=== PATIENT | female | born 1965 | race Caucasian/White ===

== ENCOUNTER → 2018-05-31 | Outpatient (CLI) | payer OTHER | LOC: FIMAGING 13:37 | PROVIDERS: ATTEND Orthopaedic Surgery | DX: Z01.818 Encounter for other preprocedural examination (principal); M17.11 Unilateral primary osteoarthritis, right knee; M23.41 Loose body in knee, right knee ==

== ENCOUNTER 2018-06-19 06:00 | Observation (INO) | payer OTHER ==
[~2018-06-19 06:00] MED LIST: ROPIVACAINE 0.2% 80 MG, EPINEPHrine 0.2 MG, KETOROLAC TROMETHAMINE 30 MG in SYRINGE 0 ML IU ONE; TRANEXAMIC ACID 3,000 MG in NS (SYRINGE) 50 ML IRR ONE
[2018-06-19] MEDS ORDERED: FAMOTIDINE 20 MG TAB PO ONE (06:19)
[2018-06-19] MEDS ORDERED: DEXAMETHASONE 4 MG/ML VIAL IVP ONE (06:19)
[2018-06-19] MEDS ORDERED: ACETAMINOPHEN 325 MG TAB PO ONE (06:19)
[2018-06-19] MEDS ORDERED: ceFAZolin 2 GM/DEXTROSE 100 ML IV ONE (06:19)
[2018-06-19] MEDS ORDERED: LR 1,000 ML IV ONE (06:21)
[2018-06-19] MEDS ORDERED: LIDOCAINE 1% 2 ML INJ ID PRN (06:21)
[2018-06-19] MEDS ORDERED: TRANEXAMIC ACID 3,000 MG/50 ML BAG IRR ONE (06:49)
[2018-06-19] MEDS ORDERED: MIDAZOLAM 2 MG/2 ML VIAL IVP ONE (06:55)
[2018-06-19] MEDS ORDERED: MIDAZOLAM 2 MG/2 ML VIAL ONE (06:55)
[2018-06-19] MEDS ORDERED: HYDROCODONE/APAP 5/325 TAB PO PRN (06:56)
[2018-06-19] MEDS ORDERED: PROMETHAZINE HCL 25 MG/ML INJ IVP PRN ×2 (06:56→08:54)
[2018-06-19] MEDS ORDERED: ONDANSETRON 4 MG/2 ML VIAL IVP PRN ×2 (06:56→08:54)
[2018-06-19] MEDS ORDERED: ALBUTEROL 3 ML DEYVIAL IH PRN (06:56)
[2018-06-19] MEDS ORDERED: oxyCODONE IR 5 MG TAB PO PRN (06:56)
[2018-06-19] MEDS ORDERED: DEXAMETHASONE 4 MG/ML VIAL IVP PRN (06:56)
[2018-06-19] MEDS ORDERED: NALOXONE HCL 0.4 MG/ML INJ IVP PRN (06:56)
[2018-06-19] MEDS ORDERED: ACETAMINOPHEN 500 MG TAB PO PRN (06:56)
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
[2018-06-19] MEDS ORDERED: PROPOFOL/EMULSION 500 MG/50 ML BOTTLE IV ONE (07:10)
--- NOTE | 2018-06-19 07:14 | PDHPUP ---
History & Physical Update H&P update statement: This history and physical update is based on an assessment of the patient which was completed after admission or registration (within 24 hours), but prior to the surgery/procedure. H&P update: H&P reviewed & patient examined, no change in patient's condition since H&P completed
[2018-06-19] MEDS ORDERED: fentaNYL 100 MCG/2 ML INJ ONE ×2 (07:15→10:33)
[2018-06-19] MEDS ORDERED: ROPIVACAINE HCL 150 MG/30 ML INJ ONE (07:45)
[2018-06-19] MEDS ORDERED: ONDANSETRON 4 MG/2 ML VIAL ONE (07:45)
[2018-06-19] MEDS ORDERED: PROPOFOL 200 MG/20 ML VIAL ONE (08:26)
[2018-06-19] MEDS ORDERED: MAGNESIUM HYDROXIDE 30 ML UDCUP PO PRN (08:54)
[2018-06-19] MEDS ORDERED: TEMAZEPAM 15 MG CAP PO PRN (08:54)
[2018-06-19] MEDS ORDERED: PROMETHAZINE HCL 25 MG SUPPR PR PRN (08:54)
[2018-06-19] MEDS ORDERED: LACTULOSE 20 GM/30 ML UDCUP PO PRN (08:54)
[2018-06-19] MEDS ORDERED: BISACODYL 10 MG SUPP PR PRN (08:54)
[2018-06-19] MEDS ORDERED: POLYETHYLENE GLYCOL 3350 17 GM PKT PO PRN (08:54)
[2018-06-19] MEDS ORDERED: METOCLOPRAMIDE 10 MG/2 ML VIAL IVP PRN (08:54)
[2018-06-19] MEDS ORDERED: DIPHENOXYLATE/ATROPINE LOMOTIL 1 TAB PO PRN (08:54)
[2018-06-19] MEDS ORDERED: diphenhydrAMINE 25 MG CAP PO PRN (08:54)
--- NOTE | 2018-06-19 08:54 | POSTOPPROG ---
Post Op Note Date of Operation: 06/19/18 Surgeon: Lance Covington [employer] Helper: andreia covington Anesthesiologist: dr. cabrales Anesthesia: Spinal, Other (Specify) (adductor canal block) Pre-op Diagnosis: right knee OA Post-op Diagnosis: same Indication: right knee pain Procedure: R TKA robot assisted Findings: severe knee OA Inf/Abcess present in the surg proc area at time of surgery?: No EBL: 50-100
[2018-06-19] MEDS ORDERED: ACYCLOVIR 400 MG TAB PO PRN (08:56)
[2018-06-19] MEDS ORDERED: LR 1,000 ML IV SCH (09:00)
--- NOTE | 2018-06-19 10:01 | POSTANESTH ---
Post Anesthetic Evaluation Cardiovascular Status: Normal, Stable Respiratory Status: Normal, Stable Level of Consciousness/Mental Status: Can Participate in Eval Pain Control: Adequate, Prn Tx Ordered Nausea/Vomiting Control: Adequate, Prn Tx Ordered Complications Possibly Related to Anesthesia: None Noted
[2018-06-19] MEDS: fentaNYL 100 MCG/2 ML INJ IVP PRN ×2 (10:35→10:42)
--- NOTE | 2018-06-19 10:42 | PDMN ---
Medical Necessity Medical necessity: [facility] [place] S700 knee arthroplasty: R TKA--approved per surg fax auth # [id number] for CPT 70337
[2018-06-19] MEDS: ACETAMINOPHEN 325 MG TAB PO SCH ×2 (11:52→17:45)
[2018-06-19] MEDS: SENNOSIDES/DOCUSATE SODIUM TAB PO SCH ×2 (11:54→19:42)
[2018-06-19] MEDS: ceFAZolin 2 GM/DEXTROSE 100 ML IV SCH ×2 (13:53→21:14)
[2018-06-19] MEDS: oxyCODONE IR 5 MG TAB PO PRN ×2 (16:25→19:42)
[2018-06-19] MEDS: ASPIRIN 81 MG CHEWABLE TAB PO SCH (19:42)
[2018-06-19] MEDS: FAMOTIDINE 20 MG TAB PO SCH (19:42)
[2018-06-19] MEDS: ONDANSETRON DISINTEGRATING 4 MG TAB PO PRN (22:17)
[2018-06-19] MEDS: CYCLOBENZAPRINE 10 MG TAB PO PRN (22:20)
[2018-06-20] MEDS: oxyCODONE IR 5 MG TAB PO PRN ×7 (00:17→23:09)
[2018-06-20] MEDS: ACETAMINOPHEN 325 MG TAB PO SCH ×4 (00:17→18:35)
--- NOTE | 2018-06-20 08:54 | SOAPPROG ---
SOAP Progress Note Assessment/Plan: Assessment: Patient is doing well POD 1 s/p R TKA Pain management: pain is well controlled on oral pain meds. VTE ppx: recommend aspirin 81 mg BID for 4 weeks, cont KIMBERLY and SCDs D/c planning: d/c to home today pending release from PT postop urinary retention: straight cath'd yesterday, resolved today Plan: 06/20/18 08:53 06/20/18 08:54 Subjective: patient is doing well ,denies SOB ,chest pain and n/v Objective: Vital Signs Temp Pulse Resp BP Pulse Ox 36.6 C 62 14 113/77 97 06/20/18 08:00 06/20/18 08:00 06/20/18 08:00 06/20/18 08:00 06/20/18 08:00 06/19/18 06/20/18 06/21/18 05:59 05:59 05:59 Intake Total 4750 500 Output Total 3405 Balance 1345 500 RLE; incision dressing is clean and dry, NVI, +pf/df ICD10 Worksheet Patient Problems: Problems Problem Status Onset Primary localized osteoarthritis of right knee Acute
[2018-06-20] MEDS: ONDANSETRON DISINTEGRATING 4 MG TAB PO PRN ×3 (09:36→23:08)
[2018-06-20] MEDS: SENNOSIDES/DOCUSATE SODIUM TAB PO SCH ×2 (10:06→18:35)
[2018-06-20] MEDS: CYCLOBENZAPRINE 10 MG TAB PO PRN ×2 (10:07→21:21)
[2018-06-20] MEDS: ASPIRIN 81 MG CHEWABLE TAB PO SCH ×2 (10:07→21:21)
[2018-06-20] MEDS: FAMOTIDINE 20 MG TAB PO SCH ×2 (10:11→21:21)
--- NOTE | 2018-06-20 11:11 | ASMTLACE ---
LACE Length of stay for Answers: 2 days current admission Acuity / Level of Answers: Yes Care: Did the patient have an inpatient admission? Comorbidities - select Answers: Other Notes: HTN all that apply # of Emergency department Answers: 0 visits in the last 6 months Score: 6 Date Signed: 06/20/2018 11:11 AM Electronically Signed By:CARLY Nelson
--- NOTE | 2018-06-20 14:03 | GOP ---
DATE OF OPERATION: 06/19/2018 SURGEON: Carlyle Ledesma MD BUSINESS OPERATIONS ANALYST: Tri Ledesma P.A.-C. ANESTHESIA: Spinal. PREOPERATIVE DIAGNOSIS: Right knee osteoarthritis. POSTOPERATIVE DIAGNOSIS: Right knee osteoarthritis. PROCEDURE PERFORMED: Right total knee arthroplasty with computer navigation, robotic assist. FINDINGS: ESTIMATED BLOOD LOSS: 30 cc. INDICATIONS: The patient is a 52-year-old female with severe and progressive pain and deformity of the right knee unresponsive to conservative care. The risks and benefits of surgical intervention were explained in detail. DESCRIPTION OF PROCEDURE: The patient was brought to the operative room and placed on the table in the supine position. Spinal anesthesia was induced without difficulty. A pneumatic tourniquet was applied about the right proximal thigh, and the leg was prepped and draped in a sterile fashion. The leg shah was applied. After exsanguination by elevation the tourniquet was inflated to 250 mmHg. Incision was made anteromedial from the tibial tuberosity to a point 2 cm proximal to the superior pole of the patella. severe compartmental osteoarthritis. Medial parapatellar arthrotomy was carried out from the superior pole of the patella and posteriorly in line with the fibers of the Type II VMO. The medial collateral ligament was elevated and the infrapatellar fat pad was resected. The patella was everted and the articular surface was excised. A 35 mm patellar button was placed. Attention was turned first to the distal aspect of the femur. After exposure of the femur, 2 half pins were placed for fixation of the femoral array. In a similar fashion, 2 pins were placed anteromedial on the tibia for fixation of the tibial array. External land marking and registration of the hip center were performed without difficulty. Internal femoral and tibial registration were carried out without difficulty and the femoral and tibial checkpoints were placed and verified for accuracy. Attention was turned to the femur. The foot print for the size 4 femoral component was cut with the saw using the [employer] robotic system and verified for accuracy against the CT based plan. In a similar fashion, the saw was used to cut the footprint for the size 4 tibial component using the [employer] system and verified for accuracy against the CT based plan. The tibial articular surface was excised without difficulty, followed by the intercondylar box cut. The knee was extended and the remnants of the medial and lateral meniscus were excised. The posterior capsule was injected with ropivacaine, epinephrine and Toradol. A size 4 tibial tray was positioned. Trial reduction was then carried out. There was excellent range of motion, alignment, and stability using the 4 x 9 mm polyethylene. All trials were then removed. The joint was thoroughly irrigated and carefully dried. The Press-Fit components were implanted. The permanent 9 mm polyethylene was placed without difficulty. The tourniquet was deflated and all bleeders were coagulated. The wound was thoroughly irrigated and closed using interrupted sutures of 2-0 Vicryl for the joint capsule. The subcu was closed with 3-0 Vicryl and the skin with 4-0 Monocryl. Dermabond and Steri-Strips were applied followed by a compressive dressing. The patient was then moved from the operating room to the recovery room in good condition, having tolerated the procedure well. /[id number]/MODL MTDD
--- NOTE | 2018-06-20 15:42 | CPEKG ---
Test Reason : OPEN Blood Pressure : / mmHG Vent. Rate : 062 BPM Atrial Rate : 061 BPM P-R Int : 151 ms QRS Dur : 096 ms QT Int : 434 ms P-R-T Axes : 061 028 048 degrees QTc Int : 441 ms Sinus rhythm Confirmed by Matias Rosas ([id number]) on 06/20/2018 3:42:16 PM Referred By: Confirmed By:Matias Rosas
[2018-06-21] MEDS: oxyCODONE IR 5 MG TAB PO PRN ×4 (00:01→13:51)
[2018-06-21] MEDS: ACETAMINOPHEN 325 MG TAB PO SCH ×3 (00:01→13:51)
[2018-06-21] MEDS: ASPIRIN 81 MG CHEWABLE TAB PO SCH (08:42)
[2018-06-21] MEDS: SENNOSIDES/DOCUSATE SODIUM TAB PO SCH (08:43)
[2018-06-21] MEDS: ONDANSETRON DISINTEGRATING 4 MG TAB PO PRN ×2 (08:44→16:06)
[2018-06-21] MEDS: FAMOTIDINE 20 MG TAB PO SCH (09:17)
[2018-06-21 12:03] VITALS: BP 136/82
[2018-06-21] MEDS: CYCLOBENZAPRINE 10 MG TAB PO PRN (16:05)
== END 2018-06-21 17:09 | disposition home or self-care (01) ==
LOC: F3N 06:00 → INTOOBSV 06:00 → OBSVTOIN 06:00 → F3N 11:16
PROVIDERS: ADMIT Orthopaedic Surgery; ATTEND Orthopaedic Surgery
PROC: 8E0YXBG Computer Assisted Procedure of Lower Extremity, With Computerized Tomography (ICD-10-PCS; principal; 2018-06-19 07:15)
PROC: 8E0Y0CZ Robotic Assisted Procedure of Lower Extremity, Open Approach (ICD-10-PCS; principal; 2018-06-19 07:15)
PROC: 0SRC06Z Replacement of Right Knee Joint with Oxidized Zirconium on Polyethylene Synthetic Substitute, Open Approach (ICD-10-PCS; principal; 2018-06-19 07:15)
DX: M17.11 Unilateral primary osteoarthritis, right knee (principal)
CPT/HCPCS: 97110-GP; 97116-GP; 97161-GP; 97165-GO; 97530-GO; 97530-GP; 97535-GO; G0378; J0171; J0690; J1100; J1885; J2250; J2405; J2704; J2795; J3010